=== PATIENT | female | born 2000 | race Hispanic/Latino ===

== ENCOUNTER 2023-04-12 16:11 | Emergency (ER) | payer OTHER ==
[~2023-04-12] VITALS: Ht 165.1 cm; Wt 49.4 kg
[2023-04-12 16:13] VITALS: BP 120/67; TEMP 98.1; O2SAT 100
[2023-04-12] MEDS ORDERED: NYST-13 TOP (22:03)
== END 2023-04-12 22:11 | disposition home or self-care (01) ==
LOC: M ED 16:11
DX: N64.52 Nipple discharge (principal)

== ENCOUNTER → 2023-07-13 | Outpatient (REF) | payer OTHER ==
[~2023-07-13] MED LIST: NYST-13 TOP
[2023-07-13 17:42] LABS: BASO # 0.1 10^3/uL (0.0-0.2); BASO % 0.6 % (0.0-1.0); EOS # 0.3 10^3/uL (0.0-0.5); HEMATOCRIT 45.5 % (36.0-47.0); HEMOGLOBIN 15.2 g/dl (12.0-15.5); LYMPH # 2.1 10^3/uL (1.5-5.0); LYMPH % 23.7 % (24.0-44.0); MEAN CORPUSCULAR HEMOGLOBIN 29.2 pg (27.0-33.0); MEAN CORPUSCULAR HGB CONC 33.4 g/dl (32.0-36.5); MEAN CORPUSCULAR VOLUME 87.3 fl (80.0-96.0); MONO # 0.4 10^3/uL (0.0-0.8); MONO % 4.2 % (2.0-8.0); NEUTROPHILS % 68.3 % (36.0-66.0); PLATELET COUNT, AUTOMATED 231 10^3/uL (150-450); RED BLOOD COUNT 5.21 10^6/uL (4.00-5.40); WHITE BLOOD COUNT 8.8 10^3/uL (4.0-10.0)
[2023-07-13 18:03] LABS: HEMOGLOBIN A1c 4.3 % (4.0-6.0)
[2023-07-13 18:17] LABS: CHOLESTEROL LEVEL 155 MG/DL (<200); CHOLESTEROL RISK RATIO 2.31 (<5); HDL CHOLESTEROL 66.9 MG/DL (>40); LDL CHOLESTEROL 73.1 MG/DL (<100); NON-HDL-C 88.1 MG/DL; TOTAL 25(OH) VITAMIN D 18.1 NG/ML (20.0-100.0); TRIGLYCERIDES LEVEL 75 MG/DL (<150)
== END ==
LOC: M LAB REF 16:37
PROVIDERS: ATTEND Pediatrics
DX: R63.6 Underweight (principal); E55.9 Vitamin D deficiency, unspecified; Z11.9 Encounter for screening for infectious and parasitic diseases, unspecified; Z83.3 Family history of diabetes mellitus; R53.83 Other fatigue

== ENCOUNTER → 2024-01-04 | Outpatient (REF) | payer OTHER ==
[2024-01-04 13:08] LABS: HEMATOCRIT 38.5 % (36.0-47.0); HEMOGLOBIN 13.1 g/dl (12.0-15.5); MEAN CORPUSCULAR HEMOGLOBIN 30.4 pg (27.0-33.0); MEAN CORPUSCULAR VOLUME 89.3 fl (80.0-96.0); PLATELET COUNT, AUTOMATED 172 10^3/uL (150-450); RED BLOOD COUNT 4.31 10^6/uL (4.00-5.40); WHITE BLOOD COUNT 5.1 10^3/uL (4.0-10.0)
[2024-01-04 14:06] LABS: HCG, SERUM QUANTITATIVE 5073.8 MIU/ML (<4.2)
[2024-01-04 14:56] LABS: HEPATITIS C VIRUS ABY INDEX < 0.02 INDEX (<0.8)
[2024-01-04 16:33] LABS: HIV 1&2 SCREEN NEGATIVE (NEGATIVE)
== END ==
LOC: M LAB REF 12:21
PROVIDERS: ATTEND Obstetrics & Gynecology
DX: O36.80X0 Pregnancy with inconclusive fetal viability, not applicable or unspecified (principal); Z32.01 Encounter for pregnancy test, result positive

== ENCOUNTER → 2024-01-19 | Outpatient (CLI) | payer OTHER | LOC: M RAD 15:04 | PROVIDERS: ATTEND Obstetrics & Gynecology | DX: O36.80X0 Pregnancy with inconclusive fetal viability, not applicable or unspecified (principal); Z32.01 Encounter for pregnancy test, result positive; Z3A.01 Less than 8 weeks gestation of pregnancy ==